=== PATIENT | male | born 1950 | race Caucasian/White ===

== ENCOUNTER 2016-11-25 09:10 | Emergency (ER) | payer MEDICARE, BC | END 2016-11-25 09:40 | disposition home or self-care (01) | LOC: ER 09:10 | DX: S50.861A Insect bite (nonvenomous) of right forearm, initial encounter (principal); S30.861A Insect bite (nonvenomous) of abdominal wall, initial encounter; Z88.1 Allergy status to other antibiotic agents; Z88.2 Allergy status to sulfonamides; Z88.8 Allergy status to other drugs, medicaments and biological substances; Z79.899 Other long term (current) drug therapy; W57.XXXA Bitten or stung by nonvenomous insect and other nonvenomous arthropods, initial encounter ==